=== PATIENT | female | born 1955 ===

== ENCOUNTER → 2022-05-01 | Outpatient (REF) | payer BC | LOC: M WUC 17:57 | PROVIDERS: ATTEND Physician Assistant | DX: R30.0 Dysuria (principal) ==

== ENCOUNTER → 2023-05-13 | Outpatient (CLI) | payer BC | LOC: M SOG 14:02 | PROVIDERS: ATTEND Orthopaedic Surgery | DX: M25.511 Pain in right shoulder (principal) ==